=== PATIENT | male | born 1970 | race African-American/Black ===

== ENCOUNTER → 2017-11-05 | Outpatient (CLI) | payer OTHER ==
--- NOTE | 2017-11-05 16:38 | RAD ---
Bilateral knees, 6 views, 11/05/2017: HISTORY: Chronic knee pain On the right, there are surgical screw fragments in the distal femur and proximal tibia compatible with previous ACL reconstructive surgery. There is mild marginal spurring at the knee joint. No recent fracture or dislocation is identified. No large joint effusion is seen. On the left, there are lucencies in the distal femur and proximal tibia also suggesting previous surgical tracks. There is mild spurring at the left knee joint. No fracture or dislocation is identified. No large joint effusion is seen. IMPRESSION: 1. Bilateral postsurgical and degenerative changes as described above. 2. No acute bony abnormality is detected. Electronically signed by: Yan Zeng MD (11/05/2017 4:35 PM) [facility]
== END | disposition home or self-care (01) ==
LOC: PMG 11:27
PROVIDERS: ATTEND Neuromusculoskeletal Medicine & OMM
DX: M17.0 Bilateral primary osteoarthritis of knee (principal); Z98.890 Other specified postprocedural states
CPT/HCPCS: 73562

== ENCOUNTER 2017-12-10 23:15 | Emergency (ER) | payer OTHER ==
[~2017-12-10] VITALS: Ht 177.8 cm; Wt 103.0 kg
[2017-12-11] MEDS ORDERED: amLODIPine BESYLATE 5 MG TABLET PO ONE (00:30)
[2017-12-11] MEDS ORDERED: cloNIDine HCL 0.1 MG TABLET PO ONE (00:30)
--- NOTE | 2017-12-11 00:39 | ED.ADGEN ---
Past History Past Medical History: Hypertension, Other Past Surgical History: Other Alcohol Use: None Drug Use: None Adult General Chief Complaint Chief Complaint HTN HPI HPI 47 years old male presented to the emergency department with headache stated that his been off his blood pressure medication for long time was seen and evaluated by physician pathology assistant will change his medication but has not received it isn't. No neck pain no blurred vision no focal neurological signs or symptoms Review of Systems Review of Systems Constitutional: Denies fever or chills [] Eyes: Denies change in visual acuity, redness, or eye pain [] HENT: Denies nasal congestion or sore throat [] Respiratory: Denies cough or shortness of breath [] Cardiovascular: No additional information not addressed in HPI [] GI: Denies abdominal pain, nausea, vomiting, bloody stools or diarrhea [] : Denies dysuria or hematuria [] Musculoskeletal: Denies back pain or joint pain [] Integument: Denies rash or skin lesions [] Neurologic: Denies, focal weakness or sensory changes [] Endocrine: Denies polyuria or polydipsia [] All other systems were reviewed and found to be within normal limits, except as documented in this note. Current Medications Current Medications Current Medications Medications (Trade) Dose Ordered Sig/Marcella Start Time Stop Time Status Last Admin Dose Admin Amlodipine Besylate (Norvasc) 5 mg 1X ONCE 12/11/17 00:30 12/11/17 00:31 UNV Clonidine HCl (Catapres) 0.1 mg 1X ONCE 12/11/17 00:30 12/11/17 00:31 UNV Allergies Allergies Allergies Coded Allergies Type Severity Reaction Last Updated Verified minoxidil Allergy Mild 12/10/17 Yes lisinopril Allergy Unknown 12/10/17 Yes ibuprofen Adverse Reaction Unknown 12/10/17 Yes Uncoded Allergies Type Severity Reaction Last Updated Verified iv dye Allergy Mild 12/10/17 Physical Exam Physical Exam Constitutional: Well developed, well nourished, no acute distress, non-toxic appearance. [] HENT: Normocephalic, atraumatic, bilateral external ears normal, oropharynx moist, no oral exudates, nose normal. [] Eyes: PERRLA, EOMI, conjunctiva normal, no discharge. [] Neck: Normal range of motion, no tenderness, supple, no stridor. [] Cardiovascular:Heart rate regular rhythm, no murmur [] Lungs & Thorax: Bilateral breath sounds clear to auscultation [] Abdomen: Bowel sounds normal, soft, no tenderness, no masses, no pulsatile masses. [] Skin: Warm, dry, no erythema, no rash. [] Back: No tenderness, no CVA tenderness. [] Extremities: No tenderness, no cyanosis, no clubbing, ROM intact, no edema. [] Neurologic: Alert and oriented X 3, normal motor function, normal sensory function, no focal deficits noted. [] Psychologic: Affect normal, judgement normal, mood normal. [] Current Patient Data Vital Signs Vital Signs Date Time Temp Pulse Resp B/P (MAP) Pulse Ox O2 Delivery O2 Flow Rate FiO2 12/10/17 23:37 98.3 77 18 98 Room Air EKG EKG [] Radiology/Procedures Radiology/Procedures [] Course & Med Decision Making Course & Med Decision Making Pertinent Labs and Imaging studies reviewed. (See chart for details) [] Final Impression Final Impression [] Problems: (1) Accelerated essential hypertension Dragon Disclaimer Dragon Disclaimer This electronic medical record was generated, in whole or in part, using a voice recognition dictation system. KEVIN OSUNA MD Dec 11, 2017 00:39
[2017-12-11] MEDS ORDERED: ACETAMINOPHEN 500 MG TABLET PO ONE (01:15)
[2017-12-11 01:38] VITALS: BP 150/103
== END 2017-12-11 01:52 | disposition home or self-care (01) ==
LOC: ER 23:15
DX: I10 Essential (primary) hypertension (principal); Z88.6 Allergy status to analgesic agent; Z88.8 Allergy status to other drugs, medicaments and biological substances
CPT/HCPCS: 99284

== ENCOUNTER → 2018-10-21 | Outpatient (CLI) | payer OTHER ==
[~2018-10-21] MED LIST: IOHEXOL 240 MG/ML 50ML VIAL. ONE; IOHEXOL 300 MG/ML 75 ML VIAL. IV ONE
--- NOTE | 2018-10-21 11:13 | RAD ---
EXAM: CT Abdomen and Pelvis with IV contrast CLINICAL HISTORY: Left adrenal adenoma. Hyperaldosteronism COMPARISON: none TECHNIQUE: Helical CT of the abdomen and pelvis was performed following the administration of intravenous contrast. Axial, coronal and sagittal reformatted images were generated. PQRS compliance statement - One or more of the following individualized dose reduction techniques were utilized for this study: 1. Automated exposure control 2. Adjustment of the mA and/or kV according to patient size 3. Use of iterative reconstruction technique FINDINGS: Lower chest: Lung bases are clear. Mild cardiomegaly. Abdomen and Pelvis: No focal liver lesion. Gallbladder is normal. No biliary duct dilatation. Pancreas is unremarkable. Spleen is normal in appearance. Left adrenal nodule measures 1.3 x 0.7 cm, too small to accurately measure. Mild nodular thickening is seen at the inferior margin of the left adrenal gland. Right adrenal gland is normal. A 1.7 cm left upper pole renal cystic lesion is seen. Symmetric nephrograms. No hydronephrosis. No hydroureter. Mild bladder wall thickening may be seen with cystitis. Subcentimeter hypodense bilateral lower pole renal lesions are too small to accurately characterize. Colonic diverticulosis without evidence for acute diverticulitis. No abdominal or pelvic ascites. No bowel obstruction. Several small mesenteric and retroperitoneal lymph nodes are seen, not enlarged by size criteria measuring approximately 8-9 mm in short axis. A left common femoral lymph node measures 1.7 x 1.1 cm. A right common femoral lymph node measures 1.8 x 1.2 cm. No abdominal or pelvic ascites. Small fat-containing periumbilical hernia. Aorta is grossly normal in caliber. Bones: Multilevel degenerative changes of spine are seen. Mild L5-S1 disc height loss. IMPRESSION: 1. A 1.3 x 0.7 cm left adrenal nodule is too small to accurately measure. However if further characterization is clinically required, MRI may provide additional details. 2. Left upper pole renal cystic lesion is seen. No hydronephrosis or hydroureter. 3. Colonic diverticulosis without evidence for acute diverticulitis. 4. Mild bladder wall thickening may be seen with cystitis. 5. Borderline-enlarged common femoral lymph nodes are seen, of uncertain clinical significance. Prominent mesenteric and retroperitoneal lymph nodes, not enlarged by size criteria, may be reactive. Electronically signed by: Simone Carvalho MD (10/21/2018 11:10 AM) [facility]
== END | disposition home or self-care (01) ==
LOC: CT 09:10
PROVIDERS: ATTEND Family Medicine
DX: K57.30 Diverticulosis of large intestine without perforation or abscess without bleeding (principal); K42.9 Umbilical hernia without obstruction or gangrene; E26.9 Hyperaldosteronism, unspecified; E27.9 Disorder of adrenal gland, unspecified; N28.89 Other specified disorders of kidney and ureter; I11.0 Hypertensive heart disease with heart failure; M47.27 Other spondylosis with radiculopathy, lumbosacral region; Z88.8 Allergy status to other drugs, medicaments and biological substances; Z91.041 Radiographic dye allergy status
CPT/HCPCS: 74177; Q9967